=== PATIENT | female | born 1995 | race Hispanic/Latino ===

== ENCOUNTER 2017-03-15 09:39 | Emergency (ER) | payer MEDICAID ==
[2017-03-15 10:57] LABS: APPEARANCE,URINE Cloudy (CLEAR); BILIRUBIN,URINE Negative (NEGATIVE); COLOR,URINE Yellow (YELLOW); GLUCOSE, URINE (UA) Negative (NEGATIVE); KETONES,URINE Negative (NEGATIVE); LEUKOCYTE ESTERASE ,URINE Large (NEGATIVE); NITRATE,URINE Negative (NEGATIVE); OCCULT BLOOD,URINE Negative (NEGATIVE); PH,URINE 6.5 (5.0-8.0); PROTEIN,URINE Negative (NEGATIVE)
[2017-03-15 11:04] LABS: AMPHET/METH SCREEN,URINE NEGATIVE (NEGATIVE); BARBITURATE SCREEN, URINE NEGATIVE (NEGATIVE); BENZODIAZEPINES SCREEN,URINE POSITIVE (NEGATIVE); CANNABINOID SCREEN,URINE NEGATIVE (NEGATIVE); COCAINE SCREEN,URINE NEGATIVE (NEGATIVE); OPIATE SCREEN,URINE NEGATIVE (NEGATIVE); PHENCYCLIDINE SCREEN,URINE NEGATIVE (NEGATIVE)
[2017-03-15 11:28] LABS: BACTERIA,URINE Moderate /HPF (None Seen); SQUAMOUS EPITHELIAL CELL,UR 30-50 /LPF (0-2)
[2017-03-15 11:33] LABS: HCG,QUAL RESULT NEGATIVE (NEGATIVE)
[2017-03-15] MEDS ORDERED: ORPHENADRINE CITRATE 30 MG/ML ML ONE (11:43)
[2017-03-15] MEDS ORDERED: KETOROLAC TROMETHAMINE 60 MG/2 ML VIAL ONE (11:44)
== END 2017-03-15 11:58 | disposition home or self-care (01) ==
LOC: EDH 09:39
DX: S33.5XXA Sprain of ligaments of lumbar spine, initial encounter (principal); E07.9 Disorder of thyroid, unspecified; X50.0XXA Overexertion from strenuous movement or load, initial encounter; Y93.89 Activity, other specified; Y92.89 Other specified places as the place of occurrence of the external cause; Y99.8 Other external cause status
CPT/HCPCS: 80305; 81001; 81025; 96372 ×2; 99284; J1885; J2360

== ENCOUNTER 2019-09-09 15:22 | Emergency (ER) | payer MEDICAID ==
[~2019-09-09 15:22] MED LIST: CEPH-578 PO; CLIN300C3 PO
[2019-09-09] MEDS ORDERED: SODIUM CHLORIDE 0.9% 1000ML 1,000 ML IV ONE (16:38)
[2019-09-09 16:43] LABS: BASOPHILS % (AUTO) 0.1 % (0.0-5.0); EOSINOPHILS % (AUTO) 0.1 % (0.0-8.0); HEMATOCRIT 38.1 % (36-48); LYMPHOCYTES % (AUTO) 10.5 % (21.0-51.0); MEAN CORPUSCULAR HEMOGLOBIN 30.8 pg (27.0-33.0); MEAN CORPUSCULAR HGB CONC 35.2 g/dL (32.0-36.0); MEAN CORPUSCULAR VOLUME 87.6 fL (79-99); MONOCYTES % (AUTO) 6.8 % (3.0-13.0); NEUTROPHILS % (AUTO) 82.2 % (40.0-77.0); PLATELET COUNT (AUTO) 318 K/uL (130-400); RED BLOOD CELL COUNT(AUTO) 4.35 MIL/uL (4.00-5.50); RED CELL DISTRIBUTION WIDTH 11.1 % (11.0-15.5); WHITE BLOOD COUNT (AUTO) 13.7 K/uL (4.8-10.8)
[2019-09-09 16:52] LABS: CREATININE 0.8 mg/dL (0.5-1.5); POTASSIUM 3.5 mmol/L (3.5-5.1)
[2019-09-09 16:57] LABS: ALBUMIN 3.9 g/dL (3.5-5.0); BILIRUBIN,TOTAL 0.6 mg/dL (0.2-1.0); TOTAL PROTEIN, SERUM 7.8 g/dL (6.0-8.3)
[2019-09-09 17:04] LABS: APPEARANCE,URINE CLOUDY (CLEAR); BILIRUBIN,URINE SMALL (NEGATIVE); COLOR,URINE RED (YELLOW); GLUCOSE, URINE (UA) NEGATIVE (NEGATIVE); KETONES,URINE 5 mg/dL (NEGATIVE); LEUKOCYTE ESTERASE ,URINE SMALL (NEGATIVE); NITRATE,URINE NEGATIVE (NEGATIVE); OCCULT BLOOD,URINE LARGE (NEGATIVE); PH,URINE 6.5 (5.0-8.0); PROTEIN,URINE 100 mg/dL (NEGATIVE)
[2019-09-09 17:07] LABS: HCG,QUAL RESULT NEGATIVE (NEGATIVE)
[2019-09-09 18:13] LABS: BACTERIA,URINE Few /HPF (None Seen); RBC,URINE >100 /HPF (0-1)
[2019-09-09 18:14] LABS: MUCUS,URINE Few LPF (None Seen); SQUAMOUS EPITHELIAL CELL,UR Moderate /HPF (0-2)
== END 2019-09-09 17:55 | disposition home or self-care (01) ==
LOC: EDH 15:22
DX: N83.201 Unspecified ovarian cyst, right side (principal); R10.2 Pelvic and perineal pain
CPT/HCPCS: 36415; 76830; 80053; 81001; 81025; 83690; 85025; 87088; 99284; J7030

== ENCOUNTER 2020-09-24 00:24 | Emergency (ER) | payer MEDICAID ==
[~2020-09-24] VITALS: Ht 162.6 cm; Wt 73.0 kg
[2020-09-24] MEDS ORDERED: ONDANSETRON 4MG INJ IVP ONE (01:00)
[2020-09-24 01:38] LABS: BASOPHILS % (AUTO) 0.2 % (0.0-5.0); EOSINOPHILS % (AUTO) 0.9 % (0.0-8.0); HEMATOCRIT 36.6 % (36-48); LYMPHOCYTES % (AUTO) 21.6 % (21.0-51.0); MEAN CORPUSCULAR HEMOGLOBIN 30.8 pg (27.0-33.0); MEAN CORPUSCULAR HGB CONC 34.7 g/dL (32.0-36.0); MEAN CORPUSCULAR VOLUME 88.6 fL (79-99); MONOCYTES % (AUTO) 5.4 % (3.0-13.0); NEUTROPHILS % (AUTO) 71.6 % (40.0-77.0); PLATELET COUNT (AUTO) 366 K/uL (130-400); RED BLOOD CELL COUNT(AUTO) 4.13 MIL/uL (4.00-5.50); RED CELL DISTRIBUTION WIDTH 11.2 % (11.0-15.5); WHITE BLOOD COUNT (AUTO) 12.7 K/uL (4.8-10.8)
[2020-09-24 01:50] LABS: APPEARANCE,URINE Clear (CLEAR); BILIRUBIN,URINE Negative (NEGATIVE); COLOR,URINE Yellow (YELLOW); GLUCOSE, URINE (UA) Negative (NEGATIVE); KETONES,URINE Negative (NEGATIVE); LEUKOCYTE ESTERASE ,URINE Moderate (NEGATIVE); NITRATE,URINE Negative (NEGATIVE); OCCULT BLOOD,URINE Moderate (NEGATIVE); PH,URINE 7.5 (5.0-8.0); PROTEIN,URINE Negative (NEGATIVE); UROBILINOGEN,URINE 0.2 mg/dL (0.2-1.0)
[2020-09-24 01:51] LABS: HCG,QUAL RESULT NEGATIVE (NEGATIVE)
[2020-09-24 01:57] LABS: CREATININE 0.8 mg/dL (0.5-1.5); POTASSIUM 3.2 mmol/L (3.5-5.1)
[2020-09-24 02:05] LABS: ALBUMIN 3.6 g/dL (3.5-5.0); BILIRUBIN,TOTAL 0.3 mg/dL (0.2-1.0); TOTAL PROTEIN, SERUM 7.4 g/dL (6.0-8.3)
[2020-09-24 02:08] LABS: BACTERIA,URINE Few /HPF (None Seen)
[2020-09-24] MEDS ORDERED: MORPHINE 4 MG SYG IV ONE (02:30)
[2020-09-24] MEDS ORDERED: MORPHINE 4 MG SYG ONE (02:36)
[2020-09-24] MEDS ORDERED: IOHEXOL-350 75 ML VIAL IV ONE (02:38)
[2020-09-24 02:39] VITALS: BP 106/65
[2020-09-24 03:50] VITALS: BP 107/67
[2020-09-24 06:20] VITALS: BP 102/63
[2020-09-24] MEDS ORDERED: CEFTRIAXONE 1G VIAL ONE (07:05)
[2020-09-24] MEDS ORDERED: CEFTRIAXONE 1G VIAL IVP ONE (07:30)
[2020-09-24] MEDS ORDERED: IBUP-2070 PO (07:31)
[2020-09-24] MEDS ORDERED: NITR100C4 PO (07:31)
[2020-09-24] MEDS ORDERED: ONDA4TAB10 PO (07:31)
[2020-09-24 08:15] VITALS: BP 98/56
== END 2020-09-24 08:18 | disposition home or self-care (01) ==
LOC: EDH 01:07
DX: N30.00 Acute cystitis without hematuria (principal); E87.6 Hypokalemia; R10.84 Generalized abdominal pain; R11.2 Nausea with vomiting, unspecified; Z98.890 Other specified postprocedural states
CPT/HCPCS: 36415; 74177; 80053; 81001; 81025; 83690; 85025; 87088; 96374; 96375; 99285; J0696; J2270; J2405; J3490; Q9967

== ENCOUNTER 2022-07-05 15:20 | Emergency (ER) | payer MEDICAID ==
[~2022-07-05] VITALS: Ht 165.1 cm; Wt 65.8 kg
[~2022-07-05 15:20] MED LIST changes: +IBUP-2070 PO; +NITR100C4 PO; +ONDA4TAB10 PO
[2022-07-05 16:32] LABS: BASOPHILS % (AUTO) 0.5 % (0.0-5.0); HEMATOCRIT 37.4 % (36-48); MEAN CORPUSCULAR HEMOGLOBIN 31.2 pg (27.0-33.0); MONOCYTES % (AUTO) 10.3 % (3.0-13.0); PLATELET COUNT (AUTO) 160 K/uL (130-400); RED CELL DISTRIBUTION WIDTH 11.5 % (11.0-15.5); WHITE BLOOD COUNT (AUTO) 4.3 K/uL (4.8-10.8)
[2022-07-05 16:46] LABS: CREATININE 0.8 mg/dL (0.5-1.5); POTASSIUM 3.7 mmol/L (3.5-5.1)
[2022-07-05 16:49] LABS: ALBUMIN 3.7 g/dL (3.5-5.0); TOTAL PROTEIN, SERUM 7.3 g/dL (6.0-8.3)
[2022-07-05 19:21] LABS: APPEARANCE,URINE CLOUDY (CLEAR); BILIRUBIN,URINE NEGATIVE (NEGATIVE); COLOR,URINE LIGHT-YELLOW (YELLOW); GLUCOSE, URINE (UA) NEGATIVE (NEGATIVE); KETONES,URINE 60 mg/dL (NEGATIVE); LEUKOCYTE ESTERASE ,URINE 250 Leu/uL (NEGATIVE); NITRATE,URINE NEGATIVE (NEGATIVE); OCCULT BLOOD,URINE NEGATIVE (NEGATIVE); PROTEIN,URINE NEGATIVE (NEGATIVE); UROBILINOGEN,URINE 0.2 mg/dL (0.2-1.0)
[2022-07-05 19:24] LABS: HCG,QUALITATIVE URINE NEGATIVE (NEGATIVE)
[2022-07-05] MEDS ORDERED: ONDANSETRON 4MG INJ IVP ONE (20:00)
[2022-07-05] MEDS ORDERED: KETOROLAC 30MG VIAL (30MG/ML) IVP ONE (20:00)
[2022-07-05] MEDS ORDERED: MORPHINE 2 MG SYG IVP ONE (20:00)
[2022-07-05] MEDS ORDERED: LACTATED RINGERS 1000ML 1,000 ML IV ONE (20:00)
[2022-07-05 20:02] LABS: BACTERIA,URINE RARE /HPF (None Seen); MUCUS,URINE RARE LPF (None Seen); SQUAMOUS EPITHELIAL CELL,UR MANY /HPF (0-2)
[2022-07-05] MEDS ORDERED: IOHEXOL 350 MG/ML 100ML INFUS..BTL IV ONE (20:15)
[2022-07-05] MEDS ORDERED: CEFTRIAXONE 1G VIAL IVP ONE (21:00)
[2022-07-05] MEDS ORDERED: OMEP40CA21 PO (21:33)
[2022-07-05] MEDS ORDERED: ONDA-104 PO (21:33)
[2022-07-05] MEDS ORDERED: IBUP-1493 PO (21:33)
[2022-07-05 21:45] VITALS: BP 114/64
== END 2022-07-05 22:05 | disposition home or self-care (01) ==
LOC: EDH 15:20
DX: N39.0 Urinary tract infection, site not specified (principal)
CPT/HCPCS: 99285; 74177; 96374; 96375; 76705; 96361; 82150; 80053; 83690; 85025; 87088; 81001; 81025; 36415; J7120; J0696; J2405; J1885; Q9967